=== PATIENT | male | born 1960 | race Asian ===

== ENCOUNTER 2017-08-07 14:23 | Outpatient (CLI) | payer OTHER | END 2017-08-07 19:02 | disposition home or self-care (01) | LOC: LABW 14:23 | DX: M10.072 Idiopathic gout, left ankle and foot (principal) | CPT/HCPCS: 84550; 85651 ==

== ENCOUNTER 2017-08-28 14:24 | Emergency (ER) | payer OTHER ==
[~2017-08-28] VITALS: Ht 170.2 cm; Wt 113.4 kg
[2017-08-28] MEDS ORDERED: METFTAB PO (14:36)
== END 2017-08-28 15:40 | disposition home or self-care (01) ==
LOC: ED 14:24
DX: S69.81XA Other specified injuries of right wrist, hand and finger(s), initial encounter (principal)
CPT/HCPCS: 96372; 99283; J1885

== ENCOUNTER 2017-11-13 10:56 | Outpatient (CLI) | payer OTHER ==
[~2017-11-13 10:56] MED LIST: METFTAB PO
[2017-11-13 11:39] LABS: PLATELET COUNT 183 K/uL (142-355)
[2017-11-13 11:49] LABS: POTASSIUM 4.4 mmol/L (3.6-5.2)
== END 2017-11-13 19:23 | disposition home or self-care (01) ==
LOC: LABW 10:56
PROVIDERS: Podiatrist
DX: Z01.810 Encounter for preprocedural cardiovascular examination (principal); Z01.811 Encounter for preprocedural respiratory examination; Z01.812 Encounter for preprocedural laboratory examination; E11.9 Type 2 diabetes mellitus without complications
CPT/HCPCS: 36415; 80053; 83036; 85027

== ENCOUNTER 2017-11-19 11:17 | Outpatient (CLI) | payer OTHER | END 2017-11-19 19:49 | disposition home or self-care (01) | LOC: AMG 11:17 | DX: Z01.810 Encounter for preprocedural cardiovascular examination (principal); Z01.811 Encounter for preprocedural respiratory examination; E11.9 Type 2 diabetes mellitus without complications; Z01.812 Encounter for preprocedural laboratory examination | CPT/HCPCS: 93005 ==

== ENCOUNTER 2018-07-25 19:42 | Emergency (ER) | payer OTHER ==
[~2018-07-25] VITALS: Ht 172.7 cm; Wt 122.5 kg
[2018-07-25 19:46] VITALS: TEMP 97.7
[2018-07-25] MEDS ORDERED: METFORMIN HYDR850 MG PO (19:59)
[2018-07-25 20:29] LABS: PLATELET COUNT 216 K/uL (142-355)
[2018-07-25 20:35] LABS: POTASSIUM 3.9 mmol/L (3.6-5.2)
[2018-07-25 21:45] VITALS: BP 142/80
== END 2018-07-25 21:46 | disposition home or self-care (01) ==
LOC: ED 19:42
DX: E11.618 Type 2 diabetes mellitus with other diabetic arthropathy (principal)
CPT/HCPCS: 80053; 80307; 81000; 85027; 96372; 99283; J1885

== ENCOUNTER 2019-03-12 08:52 | Outpatient (CLI) | payer OTHER ==
[~2019-03-12 08:52] MED LIST changes: +METFORMIN HYDR850 MG PO
[2019-03-12 09:44] LABS: POTASSIUM 3.9 mmol/L (3.6-5.2)
== END 2019-03-12 19:41 | disposition home or self-care (01) ==
LOC: LABW 08:52
PROVIDERS: Nurse Practitioner
DX: E11.65 Type 2 diabetes mellitus with hyperglycemia (principal); R39.11 Hesitancy of micturition; M1A.0790 Idiopathic chronic gout, unspecified ankle and foot, without tophus (tophi); E55.9 Vitamin D deficiency, unspecified
CPT/HCPCS: 36415; 80048; 82306; 83036; 84153; 84550

== ENCOUNTER 2019-08-24 14:01 | Outpatient (CLI) | payer OTHER ==
[2019-08-24 14:34] LABS: PLATELET COUNT 189 K/uL (142-355)
== END 2019-08-24 19:31 | disposition home or self-care (01) ==
LOC: LAB 14:01
PROVIDERS: Nurse Practitioner Family
DX: Z00.00 Encounter for general adult medical examination without abnormal findings (principal); N52.8 Other male erectile dysfunction; E11.65 Type 2 diabetes mellitus with hyperglycemia; E55.9 Vitamin D deficiency, unspecified; E78.2 Mixed hyperlipidemia; Z79.4 Long term (current) use of insulin; Z79.899 Other long term (current) drug therapy
CPT/HCPCS: 80053; 80061; 82306; 83036; 84153; 84403; 84439; 84443; 85027

== ENCOUNTER 2022-05-22 08:05 | Outpatient (CLI) | payer OTHER | END 2022-05-22 18:55 | disposition home or self-care (01) | LOC: RAD 08:05 | PROVIDERS: ATTEND Nurse Practitioner Family | DX: M25.512 Pain in left shoulder (principal); M19.90 Unspecified osteoarthritis, unspecified site ==